=== PATIENT | female | born 1955 | race Caucasian/White ===

== ENCOUNTER → 2019-11-03 09:32 | Outpatient (CLI) | payer OTHER, SELFPAY ==
--- NOTE | ~2019-11-03 | XR_ITS ---
XR hand LT 2V, XR hand RT 2V 11/03/2019 10:07 (accession [id number]), 11/03/2019 10:06 (accession [id number]) Indication: Morning stiffness of the joints. Procedure: 2 views of each hand Comparison: No prior studies for comparison. Findings: No fracture, subluxation or dislocation. There are mild degenerative changes of the first C MC joints bilaterally. There is a mild degenerative change of the left triscaphe joint. No erosive ch anges. No foreign bodies. No focal soft tissue abnormality. Impression: 1: Mild polyarticular osteoarthritis. Reviewed, dictated and finalized at location [facility] [employer] Impression: 1: Mild polyarticular osteoarthritis. Impression: 1: Mild polyarticular osteoarthritis.
== END ==
DX: M19.042 Primary osteoarthritis, left hand (principal)
CPT/HCPCS: 73120

== ENCOUNTER 2022-08-20 09:00 | Outpatient (CLI) | payer MEDICARE, SELFPAY ==
--- NOTE | 2022-08-20 11:30 | NEURO_ITS ---
Impression: # Complains of arthritic pain with numbness of hands. # No Carpal Tunnel Syndrome or ulnar neuropathy # Normal needle/EMG exam. # Clinical correlation recommended. Motor Nerve Conduction Upper Extremities Median Nerve Conduction Velocity (m/sec) Terminal Latency (msec) Response Voltage(mV) Elbow-Wrist Wrist Elbow Wrist Right 58 3.4 4 10 Left 60 3.0 7 7 Ulnar Nerve Conduction Velocity (m/sec) Terminal Latency (msec) Response Voltage(mV) Above Elbow Below Elbow Wrist Above Elbow Below Elbow Wrist Right 59 2.9 7 8 Left 60 2.4 7 8 F-Wave Latency Median (ms) Ulnar (ms) Right 27.6 27.0 Left 26.9 26.3 Sensory Nerve Conduction Upper Extremities Median Nerve Stimulation Terminal Latency (msec) Wrist/Digit Response Voltage (uV) Wrist Right 2.8/2.6 89/93 Left 2.6/2.5 90/92 Ulnar Nerve Stimulation Terminal Latency (msec) Wrist/Digit Response Voltage (uV) Wrist Right 2.3 80 Left 2.2 94 Radial Nerve Terminal Latency (msec) Response Voltage(mV) Right 2.4 59 Left 2.0 40 Left Right Muscles Examined Fibrillation Fasciculation Scarcity Voltage Duration Left Right Left Right Left Right Left Right Left Right Deltoid Biceps X X Brachioradialis Triceps X X Pronator Teres X X Ext Indicis X X Ext Digitorum X X Abd Poll Brev X X 1st Dorsal Interosseus Paraspinals MTDD
== END 2022-08-20 09:01 | disposition home or self-care (01) ==
LOC: ANHNEURO 09:07
PROVIDERS: Visit Provider Orthopaedic Surgery
DX: M25.531 Pain in right wrist (principal); M25.532 Pain in left wrist; G56.03 Carpal tunnel syndrome, bilateral upper limbs
CPT/HCPCS: 95886; 95911